=== PATIENT | male | born 1985 | race Caucasian/White ===

== ENCOUNTER 2021-07-20 06:13 | Emergency (ER) | payer OTHER ==
[2021-07-20 07:00] LABS: BASOPHIL 0.6 % (0-2); EOSINOPHIL 7.2 % (0-5); HCT 47.7 % (42.0-52.0); HGB 16.2 g/dl (13.2-18.0); LYMPHOCYTE 48.4 % (15-48); MCH 30.7 pg (25.0-31.0); MCV 90.3 fL (78.0-100.0); MONOCYTE 7.2 % (0-12); MPV 10.7 fL (6.0-9.5); NEUTROPHIL 36.4 % (41-80); NRBC 0; PLT 238 K/uL (150-400); RBC 5.28 M/uL (4.70-6.00); RDW 12.8 % (11.5-14.0); WBC 8.7 K/uL (4.0-10.5)
[2021-07-20 07:20] LABS: BUN/CREAT RATIO (CALC) 14.3 RATIO; CREATININE 0.98 mg/dL (0.67-1.17); POTASSIUM 4.3 mmol/L (3.5-5.1)
[2021-07-20 07:57] LABS: CORONAVIRUS 2019 SARS-COV-2 NEGATIVE (NEGATIVE); INFLUENZA A NAA NEGATIVE (NEGATIVE)
[2021-07-20] MEDS ORDERED: ETODOLAC500 MG PO (09:12)
[2021-07-20] MEDS ORDERED: CYCLOBENZAPRINE10 MG PO (09:12)
== END 2021-07-20 09:45 | disposition home or self-care (01) ==
LOC: FER 06:13
PROVIDERS: Internal Medicine
DX: R07.89 Other chest pain (principal); Z20.822 Contact with and (suspected) exposure to COVID-19
CPT/HCPCS: 36415; 71045; 80048; 84145; 84484; 85025; 93005; J1885; U0002